=== PATIENT | male | born 1975 | race Caucasian/White ===

== ENCOUNTER 2019-05-15 15:40 | Emergency (ER) | payer MEDICAID ==
[~2019-05-15] VITALS: Ht 182.9 cm; Wt 96.3 kg
[~2019-05-15 15:40] MED LIST: ALBU6.7H9 INH; CEPH-357 PO; CLOT12CR TOP; DIPH-423 PO; ESCI5TAB12; ESOM20CA PO; HYDR1TAB PO; LOPE-144 PO; NYSPWD TP; ONDA4TAB6 PO; PANT-47 PO; PHEN51GE TP
[2019-05-15 15:49] VITALS: BP 158/91
[2019-05-15] MEDS ORDERED: DOXY100C2 PO (17:20)
[2019-05-15] MEDS ORDERED: BENZ-16 PO (17:20)
[2019-05-15] MEDS ORDERED: ALBU18HF2 INH (17:20)
== END 2019-05-15 17:27 | disposition home or self-care (01) ==
LOC: ER 15:41
DX: J20.9 Acute bronchitis, unspecified (principal); J45.909 Unspecified asthma, uncomplicated; K21.9 Gastro-esophageal reflux disease without esophagitis; Z56.0 Unemployment, unspecified; Z88.1 Allergy status to other antibiotic agents; Z88.0 Allergy status to penicillin; Z79.899 Other long term (current) drug therapy
CPT/HCPCS: 71045; 99283

== ENCOUNTER 2021-04-09 10:14 | Emergency (ER) | payer MEDICAID ==
[~2021-04-09] VITALS: Ht 182.9 cm; Wt 93.2 kg
[~2021-04-09 10:14] MED LIST changes: +ALBU18HF2 INH; -ESCI5TAB12; +ESCI5TAB17
[2021-04-09 10:26] VITALS: BP 128/85
== END 2021-04-09 10:59 | disposition home or self-care (01) ==
LOC: ER 10:15
DX: J45.901 Unspecified asthma with (acute) exacerbation (principal); K21.9 Gastro-esophageal reflux disease without esophagitis; Z72.89 Other problems related to lifestyle; Z56.0 Unemployment, unspecified; Z79.899 Other long term (current) drug therapy; Z88.1 Allergy status to other antibiotic agents; Z88.0 Allergy status to penicillin; Z79.2 Long term (current) use of antibiotics
CPT/HCPCS: 99281

== ENCOUNTER 2021-08-25 11:11 | Emergency (ER) | payer MEDICAID ==
[~2021-08-25] VITALS: Ht 182.9 cm; Wt 125.0 kg
[2021-08-25 11:24] VITALS: BP 140/87
[2021-08-25] MEDS ORDERED: erythromycin ophthalmic ointment 1gm tube RIGHTEYE ONE (11:55)
== END 2021-08-25 12:12 | disposition home or self-care (01) ==
LOC: ER 11:11
DX: H10.9 Unspecified conjunctivitis (principal); H57.11 Ocular pain, right eye; J45.909 Unspecified asthma, uncomplicated; K21.9 Gastro-esophageal reflux disease without esophagitis; F41.9 Anxiety disorder, unspecified; Z72.89 Other problems related to lifestyle; Z60.2 Problems related to living alone; Z56.0 Unemployment, unspecified; Z88.0 Allergy status to penicillin; Z88.1 Allergy status to other antibiotic agents; Z79.2 Long term (current) use of antibiotics; Z79.899 Other long term (current) drug therapy
CPT/HCPCS: 99283

== ENCOUNTER 2021-09-05 07:09 | Emergency (ER) | payer MEDICAID ==
[~2021-09-05] VITALS: Ht 182.9 cm; Wt 101.1 kg
[2021-09-05 07:16] VITALS: BP 143/97
== END 2021-09-05 08:13 | disposition home or self-care (01) ==
LOC: ER 07:09
DX: J22 Unspecified acute lower respiratory infection (principal); J44.9 Chronic obstructive pulmonary disease, unspecified; K21.9 Gastro-esophageal reflux disease without esophagitis; Z72.89 Other problems related to lifestyle; Z56.0 Unemployment, unspecified; Z88.0 Allergy status to penicillin; Z88.1 Allergy status to other antibiotic agents; Z79.899 Other long term (current) drug therapy
CPT/HCPCS: 99282

== ENCOUNTER 2021-09-18 19:10 | Emergency (ER) | payer MEDICAID ==
[~2021-09-18] VITALS: Ht 182.9 cm; Wt 125.0 kg
[2021-09-18 19:53] LABS: BASOPHILS % (AUTO) 0.4 % (0-1); EOSINOPHILS # (AUTO) 0.2 X10'3 (0-0.9); EOSINOPHILS % (AUTO) 2.1 % (0-6); HEMATOCRIT 38.4 % (42.0-52.0); HEMOGLOBIN 13.3 g/dl (14.0-17.9); LYMPHOCYTES % (AUTO) 19.1 % (21-51); MEAN CORPUSCULAR HEMOGLOBIN 29.9 PG (27.0-31.0); MEAN CORPUSCULAR HGB CONC 34.6 g/dL (33.0-36.5); MEAN CORPUSCULAR VOLUME 86.5 FL (78-98); MEAN PLATELET VOLUME 8.2 FL (7.4-10.4); MONOCYTES # (AUTO) 0.9 X10'3 (0-0.9); MONOCYTES % (AUTO) 8.6 % (2-12); NEUTROPHILS # (AUTO) 7.2 X10'3 (1.8-7.7); NEUTROPHILS % (AUTO) 69.8 % (42-75); PLATELET COUNT 181 X10'3 (140-440); RED BLOOD COUNT 4.45 X10'6 (4.70-6.10); RED CELL DISTRIBUTION WIDTH 13.1 % (11.5-14.5); WHITE BLOOD COUNT 10.3 X10'3 (4.5-11.0)
[2021-09-18 20:04] LABS: ALANINE AMINOTRANSFERASE 70 U/L (12-78); ALBUMIN 3.7 G/DL (3.4-5.0); ALBUMIN/GLOBULIN RATIO 1.2 (1.1-1.5); ALKALINE PHOSPHATASE 80 IU/L (46-116); ANION GAP 5 (8-16); ASPARTATE AMINO TRANSFERASE 29 U/L (10-37); BILIRUBIN,TOTAL 0.3 MG/DL (0.1-1.0); BLOOD UREA NITROGEN 8 MG/DL (7-18); BUN/CREATININE RATIO 7.3 (5.4-32.0); CALCIUM 8.1 MG/DL (8.5-10.1); CHLORIDE 105 MMOL/L (99-107); CREATININE 1.09 MG/DL (0.60-1.10); GLUCOSE 100 MG/DL (70-104); POTASSIUM 3.5 MMOL/L (3.5-5.1); SODIUM 140 MMOL/L (135-145); TOTAL CARBON DIOXIDE 29.7 MMOL/L (24-32); TOTAL PROTEIN 6.7 G/DL (6.4-8.2); eGFR 73 ML/MIN
[2021-09-19] MEDS ORDERED: ipratropium/albuterol 3ml nebule NEB ONE (00:20)
[2021-09-19] MEDS ORDERED: naproxen 500mg tablet PO ONE (00:20)
[2021-09-19] MEDS ORDERED: NAPR-56 PO (00:23)
[2021-09-19 00:59] VITALS: BP 135/84
== END 2021-09-19 00:49 | disposition home or self-care (01) ==
LOC: ER 19:10
DX: J45.901 Unspecified asthma with (acute) exacerbation (principal); R07.89 Other chest pain; K21.9 Gastro-esophageal reflux disease without esophagitis; F41.9 Anxiety disorder, unspecified; Z56.0 Unemployment, unspecified; Z88.0 Allergy status to penicillin; Z88.1 Allergy status to other antibiotic agents; Z79.899 Other long term (current) drug therapy
CPT/HCPCS: 36415; 71045; 80053; 84484; 85025; 93005; 94640; 99285

== ENCOUNTER 2022-01-20 14:27 | Emergency (ER) | payer MEDICAID ==
[~2022-01-20] VITALS: Ht 182.9 cm; Wt 125.0 kg
[2022-01-20 14:39] VITALS: BP 125/80
== END 2022-01-20 17:39 | disposition home or self-care (01) ==
LOC: ER 14:27
DX: S90.821A Blister (nonthermal), right foot, initial encounter (principal); J45.909 Unspecified asthma, uncomplicated; K21.9 Gastro-esophageal reflux disease without esophagitis; F41.9 Anxiety disorder, unspecified; Z72.89 Other problems related to lifestyle; Z60.2 Problems related to living alone; Z56.0 Unemployment, unspecified; Z88.1 Allergy status to other antibiotic agents; Z88.0 Allergy status to penicillin; Z79.2 Long term (current) use of antibiotics; Z79.899 Other long term (current) drug therapy; X58.XXXA Exposure to other specified factors, initial encounter; Y93.01 Activity, walking, marching and hiking; Y92.89 Other specified places as the place of occurrence of the external cause; Y99.8 Other external cause status
CPT/HCPCS: 99283

== ENCOUNTER 2022-04-04 08:57 | Emergency (ER) | payer MEDICAID ==
[~2022-04-04] VITALS: Ht 185.4 cm; Wt 100.0 kg
[~2022-04-04 08:57] MED LIST changes: +ALBU6.7H14 INH; -ALBU6.7H9 INH
[2022-04-04] MEDS: famotidine/PF 10 mg/ml inj IV ONE (11:16)
[2022-04-04] MEDS: ondansetron/PF 4mg/2ml inj IV ONE (11:16)
[2022-04-04] MEDS: normal saline 1000ML IV soln IVB ONE (11:17)
[2022-04-04 11:48] LABS: BASOPHILS % (AUTO) 0.2 % (0-1); EOSINOPHILS # (AUTO) 0.2 X10'3 (0-0.9); EOSINOPHILS % (AUTO) 3.9 % (0-6); HEMATOCRIT 41.2 % (42.0-52.0); LYMPHOCYTES # (AUTO) 1.1 X10'3 (1.1-4.8); LYMPHOCYTES % (AUTO) 21.2 % (21-51); MEAN CORPUSCULAR HEMOGLOBIN 29.9 PG (27.0-31.0); MEAN CORPUSCULAR VOLUME 87.9 FL (78-98); MEAN PLATELET VOLUME 8.7 FL (7.4-10.4); MONOCYTES # (AUTO) 0.6 X10'3 (0-0.9); MONOCYTES % (AUTO) 10.7 % (2-12); NEUTROPHILS # (AUTO) 3.3 X10'3 (1.8-7.7); PLATELET COUNT 167 X10'3 (140-440); RED BLOOD COUNT 4.69 X10'6 (4.70-6.10); RED CELL DISTRIBUTION WIDTH 13.2 % (11.5-14.5); WHITE BLOOD COUNT 5.2 X10'3 (4.5-11.0)
[2022-04-04 12:02] LABS: ALANINE AMINOTRANSFERASE 86 U/L (12-78); ALBUMIN/GLOBULIN RATIO 1.3 (1.1-1.5); ALKALINE PHOSPHATASE 77 IU/L (46-116); ANION GAP 6 (8-16); ASPARTATE AMINO TRANSFERASE 46 U/L (10-37); BILIRUBIN,TOTAL 0.4 MG/DL (0.1-1.0); BLOOD UREA NITROGEN 6 MG/DL (7-18); BUN/CREATININE RATIO 6.8 (5.4-32.0); CALCIUM 9.2 MG/DL (8.5-10.1); CHLORIDE 103 MMOL/L (99-107); CREATININE 0.88 MG/DL (0.60-1.10); GLUCOSE 94 MG/DL (70-104); LIPASE 62 U/L (73-393); POTASSIUM 3.8 MMOL/L (3.5-5.1); SODIUM 140 MMOL/L (135-145); TOTAL CARBON DIOXIDE 30.7 MMOL/L (24-32); eGFR > 90 ML/MIN
[2022-04-04] MEDS ORDERED: ONDA4TAB12 PO (12:07)
[2022-04-04 12:18] VITALS: BP 157/53
== END 2022-04-04 12:20 | disposition home or self-care (01) ==
LOC: ER 08:58
DX: R11.2 Nausea with vomiting, unspecified (principal); J45.909 Unspecified asthma, uncomplicated; K21.9 Gastro-esophageal reflux disease without esophagitis; F41.9 Anxiety disorder, unspecified; Z72.89 Other problems related to lifestyle; Z60.2 Problems related to living alone; Z56.0 Unemployment, unspecified; Z88.1 Allergy status to other antibiotic agents; Z88.0 Allergy status to penicillin; Z79.2 Long term (current) use of antibiotics; Z79.899 Other long term (current) drug therapy
CPT/HCPCS: 36415; 76700; 80053; 83690; 85025; 96361; 96374; 96375; 99284; J2405; J3490; J7030

== ENCOUNTER 2022-04-05 16:58 | Emergency (ER) | payer MEDICAID ==
[~2022-04-05] VITALS: Ht 182.9 cm; Wt 97.7 kg
[~2022-04-05 16:58] MED LIST changes: +ONDA4TAB12 PO
[2022-04-05 17:17] VITALS: BP 138/90
== END 2022-04-05 22:27 | disposition left against medical advice (07) ==
LOC: ER 16:59
DX: R05.9 Cough, unspecified (principal); R09.81 Nasal congestion; Z53.21 Procedure and treatment not carried out due to patient leaving prior to being seen by health care provider

== ENCOUNTER 2022-04-12 07:29 | Emergency (ER) | payer MEDICAID ==
[~2022-04-12] VITALS: Ht 182.9 cm; Wt 90.0 kg
[2022-04-12 07:31] VITALS: BP 142/95
== END 2022-04-12 10:44 | disposition home or self-care (01) ==
LOC: ER 07:30
DX: R04.0 Epistaxis (principal); I10 Essential (primary) hypertension; J01.10 Acute frontal sinusitis, unspecified; J45.909 Unspecified asthma, uncomplicated; K21.9 Gastro-esophageal reflux disease without esophagitis; F31.9 Bipolar disorder, unspecified; Z56.0 Unemployment, unspecified; Z88.0 Allergy status to penicillin; Z88.1 Allergy status to other antibiotic agents; Z79.899 Other long term (current) drug therapy; Z79.1 Long term (current) use of non-steroidal anti-inflammatories (NSAID)
CPT/HCPCS: 99281

== ENCOUNTER 2022-04-19 07:11 | Emergency (ER) | payer MEDICAID ==
[~2022-04-19] VITALS: Ht 182.9 cm; Wt 90.0 kg
[2022-04-19 07:16] VITALS: BP 133/90
[2022-04-19] MEDS ORDERED: acetaminophen 325mg tablet PO ONE (07:35)
== END 2022-04-19 07:48 | disposition home or self-care (01) ==
LOC: ER 07:12
DX: L60.0 Ingrowing nail (principal); K21.9 Gastro-esophageal reflux disease without esophagitis; J45.909 Unspecified asthma, uncomplicated; F41.9 Anxiety disorder, unspecified; Z56.0 Unemployment, unspecified; Z88.0 Allergy status to penicillin; Z88.1 Allergy status to other antibiotic agents; Z79.899 Other long term (current) drug therapy; Z79.1 Long term (current) use of non-steroidal anti-inflammatories (NSAID); Z79.2 Long term (current) use of antibiotics
CPT/HCPCS: 99282

== ENCOUNTER 2022-05-29 13:37 | Emergency (ER) | payer MEDICAID ==
[~2022-05-29] VITALS: Ht 182.9 cm; Wt 127.3 kg
[2022-05-29 15:26] VITALS: BP 134/68
== END 2022-05-29 15:27 | disposition home or self-care (01) ==
LOC: ER 13:37
DX: T16.1XXA Foreign body in right ear, initial encounter (principal); J45.909 Unspecified asthma, uncomplicated; K21.9 Gastro-esophageal reflux disease without esophagitis; Z88.0 Allergy status to penicillin; Z88.1 Allergy status to other antibiotic agents; Z56.0 Unemployment, unspecified; X58.XXXA Exposure to other specified factors, initial encounter; Y93.89 Activity, other specified; Y92.89 Other specified places as the place of occurrence of the external cause; Y99.8 Other external cause status
CPT/HCPCS: 99284

== ENCOUNTER 2023-06-20 09:14 | Emergency (ER) | payer MEDICAID ==
[~2023-06-20] VITALS: Ht 182.9 cm; Wt 102.8 kg
[2023-06-20 11:40] VITALS: BP 128/70; PULSE 89; RESP 17; TEMP 98.4; O2SAT 95
== END 2023-06-20 11:41 | disposition home or self-care (01) ==
LOC: ER 09:15
DX: R05.9 Cough, unspecified (principal); J45.909 Unspecified asthma, uncomplicated; F41.9 Anxiety disorder, unspecified; F41.0 Panic disorder [episodic paroxysmal anxiety]; Z72.89 Other problems related to lifestyle; Z56.0 Unemployment, unspecified; Z88.0 Allergy status to penicillin; Z79.899 Other long term (current) drug therapy; Z88.1 Allergy status to other antibiotic agents; Z79.2 Long term (current) use of antibiotics
CPT/HCPCS: 71045; 99283

== ENCOUNTER 2025-05-09 09:31 | Emergency (ER) | payer MEDICAID ==
[~2025-05-09] VITALS: Ht 182.9 cm; Wt 102.6 kg
[~2025-05-09 09:31] MED LIST changes: +ONDA-243 PO; -ONDA4TAB12 PO
[2025-05-09 09:40] VITALS: BP 131/95; PULSE 98; O2SAT 94
--- NOTE | 2025-05-09 10:04 | Physician Documentation ---
HPI ~ General Chief Complaint: Tooth Problem Stated Complaint: TOOTH ABSCESS Time Seen by MD: 10:04 Primary Medical Doctor: eulalio History of Present Illness HPI Comment This 50-year-old male presents with one day of right anterior maxillary dental pain without report of facial swelling or fever. Patient reports no other acute symptoms or concerns. Patient reports dentist appointment on 06/30/2025. Medication Reconciliation Allergies: Coded Allergies: amoxicillin (Verified Allergy, Unknown, 05/09/25) Penicillins (Verified Adverse Reaction, Intermediate, GI, 05/09/25) Scheduled Albuterol Sulfate (Proventil Hfa), 2 PUFFS INH Q6H Albuterol Sulfate (Ventolin Hfa), 2 PUFFS INH Q4HPRN Cephalexin Monohydrate* (Keflex*), 500 MG PO QID Clindamycin HCl (Clindamycin HCl CAPSULE), 3 CAP PO TID Clotrimazole (Lotrimin Af), 1 APPLIC TOP Q12H Diphenhydramine Hcl (Benadryl), 25 MG PO BID Esomeprazole Mag Trihydrate* (Nexium*), MG PO AC, (Reported) Hydrocodone/Acetaminophen (Vicodin 5-500 Tablet), 1 TAB PO Q6H Nystatin (NYSTOP powder), 1 APPLIC TP BID Ondansetron Hcl (Zofran), 1 TAB PO Q8H Pantoprazole Sodium (PROTONIX tablet), 1 TABLET PO DAILY Pantoprazole Sodium (PROTONIX tablet), 1 TABLET PO DAILY Phenylephrine Hcl/Witch Leslie (Preparation H Cooling Gel), 51 GM TP TID Scheduled PRN Loperamide HCl (Imodium A-D), 1 TAB PO Q4H PRN for diarrhea ONDANSETRON ODT 4mg tablet (Ondansetron Odt), 1 TABLET PO Q6H PRN for nausea/vomiting Ondansetron Hcl (Zofran), 1 TABLET PO Q6H PRN for pain Miscellaneous Medications Escitalopram Oxalate (Escitalopram Oxalate), (Reported) Past Medical History Past Medical History: Asthma, Bronchitis, GERD, *PSYCH*, Anxiety, Panic Disorder Past Surgical History: no surgical history Alcohol Use: Occasionally Drug Use: none Lives with: Alone Lives In: Home Occupation: unemployed Review of Systems ROS As stated above in the HPI, otherwise all systems are reviewed and negative. Physical Exam Vital Signs: Temperature: 98.2, Source: Temporal, Heart Rate: 98, Respiratory Rate: 18, BP: 131/95, Pulse Oximetry: 94, Weight: 102.600 Oxygen Flow Rate: 0 Physical Exam VITALS: Reviewed and as above. GENERAL: Alert, nontoxic appearing, no apparent distress. HEENT: Generally poor dentition throughout, right anterior maxillary gumline minimally erythematous without swelling or fluctuance, small amount of heavy white plaque at base of teeth. No facial swelling, no submandibular swelling, no elevation of the tongue, no drooling RESPIRATORY: No increased work of breathing, no respiratory distress, speaking in full clear sentences without stridor or hoarseness Progress Results/Orders Results/Orders Completed Orders - FROILAN CALVILLO Clindamycin Capsule (Cleocin Capsule) (05/09/25 10:05) Ketorolac Trometh 15mg/Ml Vial (Toradol (05/09/25 10:05) Vital Signs 05/09/25 05/09/25 05/09/25 09:40 10:16 11:03 Temp 98.2 98.2 Pulse 98 Resp 18 16 B/P (MAP) 131/95 Pulse Ox 94 O2 Flow Rate 0 Medical Decision Making Additional information obtaine: N/A Findings This well appearing 50-year-old male presented with dental pain to the right maxillary anterior teeth. Based on history and physical exam I have low clinical suspicion for peritonsillar abscess, uvulitis, deep tissue space infection of the head/neck, or impending airway compromise. There was no submandibular swelling or elevation of the tongue, the uvula was midline, patient is able to swallow fluids and secretion without difficulty, there is no increased work of breathing or noisy breathing. Based on presentation I am concerned for odontogenic infection and antibiotic treatment with clindamycin given concern for infective process along with patient's allergy to amoxicillin. Pain control with non-narcotic medications is appropriate at this time. Patient is well-appearing and hemodynamically stable appropriate for outpatient follow up. Differential Dx:Considerations: Include: Alveolar fracture, Alveolar osteitis, ANUG, Facial Cellulitis, Periapical abscess, Peridontal abscess, Post-extraction bleeding, Pulpitis, Tooth avulsion, Tooth eruption, Trigeminal neuralgia, Tooth subluxation Departure Time of Disposition: 10:04 Disposition: 01 HOME / SELF CARE / HOMELESS Impression: Primary Impression: Toothache Condition: Improved Discharge Instructions: Dental Pain Additional Instructions: Follow up with a your dentist as soon as possible. Please take the antibiotics as prescribed. You may use ibuprofen and or Tylenol as needed for pain. Please follow up with your primary care provider in the next few days. Please return to the emergency department for any new or worsening concerning symptoms. Referrals: NO PRIMARY CARE PROVIDER (PCP) Prescriptions Clindamycin HCl (Clindamycin HCl CAPSULE) 150 Mg Capsule 3 CAP PO TID, #63 CAP Prov: FROILAN CALVILLO 05/09/25 Education Educated: Patient Educated regarding: diagnosis, treatment, prognosis, need for follow up Signature Scribe Signature: No scribe Attestation: The note accurately reflects work and decisions made by me.SEAN Wilson 05/09/25 20:28 FROILAN CALVILLO May 09, 2025 10:04
[2025-05-09] MEDS ORDERED: CLIN-214 PO (10:07)
[2025-05-09 10:16] VITALS: RESP 16
[2025-05-09] MEDS: ketorolac trometh 15mg/ml vial 15 MG/ML ML IM ONE (10:16)
[2025-05-09 11:03] VITALS: TEMP 98.2
== END 2025-05-09 11:04 | disposition home or self-care (01) ==
LOC: ER 09:32
DX: K08.89 Other specified disorders of teeth and supporting structures (principal); K21.9 Gastro-esophageal reflux disease without esophagitis; F41.9 Anxiety disorder, unspecified; Z88.1 Allergy status to other antibiotic agents; Z88.0 Allergy status to penicillin; Z79.899 Other long term (current) drug therapy; Z56.0 Unemployment, unspecified; Z72.89 Other problems related to lifestyle
CPT/HCPCS: 96372; 99283; J1885